=== PATIENT | male | born 1995 | race Two or more races ===

== ENCOUNTER 2023-09-20 06:33 | Emergency (ER) | payer OTHER, SELFPAY ==
[2023-09-20 06:38] VITALS: BP 134/81; PULSE 83; RESP 18; TEMP 36.6; O2SAT 97; BMI 31.5
--- NOTE | 2023-09-20 07:19 | ED.EXTPRO ---
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 Patient states he is having trouble making a fist he is able to separate his fingers he is able to make the okay sign is able extend his wrist does have some tingling that goes to the palm of his hand. Complaint: extremity pain Related Data Allergies Allergy/AdvReac Type Severity Reaction Status Date / Time amoxicillin Allergy Hives Verified 09/20/23 06:40 Penicillins Allergy Hives Verified 09/20/23 06:40 Review of Systems Review of Systems: Review of systems: General: Patient denies any fever chills recent illness or falls Musculoskeletal: Denies back pain or body aches or other injuries HEENT: denies headache, runny nose, ear pain Respiratory: denies shortness of breath, cough Cardiovascular: no chest pain or palpitations : denies dysuria, frequency Abdomen: no nausea vomiting denies abdominal pain Extremities: no swelling, mid forearm and hand and wrist pain Skin: no diaphoresis Yes all other systems are reviewed and are negative PMFSH Social History Social History Advance Directives: No Advance Directives Information Provided: Yes Do you have a plan to hurt others: No Plan Physical Exam Vital Signs: Vital Signs: Last Vital Signs Temp 98 F 09/20/23 06:38 Pulse 83 09/20/23 06:38 Resp 18 09/20/23 06:38 BP 134/81 09/20/23 06:38 Pulse Ox 97 09/20/23 06:38 O2 Del Method Room Air 09/20/23 06:38 BMI result Body Mass Index 31.5 General: Well-appearing well-nourished in no signs of distress HEENT: Normocephalic atraumatic Neck: No signs of JVD, no masses no tenderness or lymphadenopathy Cardiovascular: Regular rate and rhythm Respiratory: Clear to auscultation bilaterally Abdomen: Soft nontender no masses Extremities: Normal pedal pulses no signs of edema exam focused to right hand and wrist patient does have some wasting concern for carpal tunnel Skin: Dry warm no rashes Back: No tenderness full ROM Medical Decision Making Medical Decision Making [facility] Narrative: Patient get Tylenol I will send patient to follow up with Orthopedics Differential Diagnosis Differential Diagnoses: The differential diagnosis associated with the presentation includes Arm strain, carpal tunnel or arthritis Consult Healthcare Provider Management of the patient was discussed with: [employer] Discharge Plan Discharge Clinical Impression: Acute carpal tunnel syndrome of right wrist Patient Disposition: Home, Self-Care Instructions: Carpal Tunnel Surgery (DC) Additional Instructions: Please call follow-up risk. CV and other concerns please do not hesitate to come back to emergency department. Referrals: Reyna Booker MD [Physician] - (Please call follow-up for wrist) Stand Alone Forms: Work/School Release Print Language: Nepali
[2023-09-20 07:55] VITALS: BP 134/81; PULSE 83; RESP 18; TEMP 36.6; O2SAT 97
== END 2023-09-20 07:55 | disposition home or self-care (01) ==
PROVIDERS: Emergency Provider Student in an Organized Health Care Education/Training Program
DX: G56.01 Carpal tunnel syndrome, right upper limb (principal)
CPT/HCPCS: 99282